=== PATIENT | female | born 1995 | race African-American/Black ===

== ENCOUNTER 2019-05-08 04:41 | Inpatient (IN) ==
[2019-05-08] MEDS ORDERED: ZOFRAN IV PRN (04:43)
[2019-05-08] MEDS ORDERED: STADOL IV PRN (04:43)
[2019-05-08] MEDS ORDERED: PEPCID PO PRN ×2 (04:43)
[2019-05-08] MEDS ORDERED: TYLENOL PO PRN (04:43)
[2019-05-08] MEDS ORDERED: REGLAN PO PRN (04:43)
[2019-05-08] MEDS ORDERED: PEPCID IV PRN (04:43)
[2019-05-08] MEDS ORDERED: PITOCIN 30 UNITS/NS 30 UNIT/500 ML IV.SOLN IV SCH ×2 (04:45→16:15)
[2019-05-08] MEDS ORDERED: SODIUM CHLORIDE 0.9% INJ SCH (04:45)
[2019-05-08] MEDS: LR 1,000 ML IV SCH ×3 (05:03→08:40)
[2019-05-08 05:40] LABS: URINE SOURCE VOIDED
[2019-05-08 05:50] LABS: BILIRUBIN URINE NEGATIVE (NEGATIVE); BLOOD URINE NEGATIVE (NEGATIVE); CLARITY CLEAR (CLEAR); COLOR YELLOW; GLUCOSE URINE NEGATIVE (NEGATIVE); KETONE URINE TRACE mg/dL (NEGATIVE); LEUKOCYTES URINE 2+ (NEGATIVE); NITRITE URINE NEGATIVE (NEGATIVE); PH URINE 6.5; PROTEIN URINE TRACE mg/dL (NEGATIVE); UROBILINOGEN URINE 1 mg/dL
[2019-05-08 05:58] LABS: BASO# 0.03 X1000 (0.0-0.2); BASO% 0.3 % (0.0-0.8); EOS# 0.19 X1000 (0.0-0.7); EOS% 2.1 % (0.0-10.0); HEMATOCRIT 33.7 % (37.0-47.0); HEMOGLOBIN 11.2 g/dL (12.0-16.0); IMM GRAN# 0.04 X1000 (0.0-0.04); IMM GRAN% 0.4 % (0.0-0.5); LYMPH# 2.71 X1000 (1.2-3.4); LYMPH% 29.7 % (20.5-51.1); MCH 30.2 PG (27-31); MCHC 33.2 g/dL (33-37); MCV 90.8 FL (81-99); MONO# 0.84 X1000 (0.11-0.59); MONO% 9.2 % (1.7-9.3); MPV 11.5 FL (7.4-10.4); NEUT% 58.3 % (42.2-75.2); PLT 179 X1000 (130-400); RBC 3.71 XMIL (4.2-5.4); RDW 13.4 % (11.5-14.5); WBC 9.11 X1000 (4.8-10.8)
[2019-05-08 05:59] LABS: UR AMPHETAMINES QUAL NONE DETECTED (NONE DETECT); UR BARBITUATES QUAL NONE DETECTED (NONE DETECT); UR BENZODIAZEPIN QUAL NONE DETECTED (NONE DETECT); UR CANNABINOIDS QUAL NONE DETECTED (NONE DETECT); UR COCAINE QUAL NONE DETECTED (NONE DETECT); UR METHADONE QUAL NONE DETECTED (NONE DETECT); UR METHAMPHETAMINE QUAL NONE DETECTED (NONE DETECT); UR OPIATES QUAL NONE DETECTED (NONE DETECT); UR OXYCODONE QUAL NONE DETECTED (NONE DETECT); UR PCP QUAL NONE DETECTED (NONE DETECT); UR PROPOXYPHENE QUAL NONE DETECTED (NONE DETECT); UR TCA QUAL NONE DETECTED (NONE DETECT)
[2019-05-08] MEDS ORDERED: FENTANYL-BUPIV-NS 2 MCG-0.1% 250 ML EPIDURAL PRN (07:37)
[2019-05-08] MEDS ORDERED: MARCAINE 0.25% PF INJ ONE (07:45)
--- NOTE | 2019-05-08 09:32 | HISTORY AND PHYSICAL ---
HISTORY OF PRESENT ILLNESS: The patient is a 23-year-old black female, G4, P3, who is at 39 and 5/7 weeks. Her care was unremarkable. She had a favorable cervix and was scheduled for induction of labor. Group B strep culture was negative. PAST MEDICAL HISTORY: Unremarkable. PAST SURGICAL HISTORY: None. PAST OB HISTORY: G4, P3, of spontaneous vaginal delivery x3. Her largest infant was 7 pounds 5 ounces. [employer]ATOR HISTORY: Menarche at age 14. FAMILY HISTORY: Significant for high blood pressure. REVIEW OF SYSTEMS: All systems reviewed and noncontributory. SOCIAL HISTORY: Tobacco use: None. Alcohol use: None. MEDICATIONS: vitamins. ALLERGIES: Penicillin. PHYSICAL EXAMINATION: VITAL SIGNS: Height is 5 feet 8 inches. Weight 271 pounds. Temperature is 97.6, blood pressure 128/67, pulse of 83, respirations 20. heart rate 125 with positive variability. HEENT: Pupils are equal, round and reactive to light and accommodation. Extraocular movements were intact. Oropharynx clear. NECK: Supple. No thyromegaly. LUNGS: Clear to auscultation. HEART: Regular rate and rhythm. ABDOMEN: Bowel sounds positive. Gravid, nontender. PELVIC: Cervix was 4 cm dilated, 50% effaced, minus 2 station. Vertex presentation was noted. EXTREMITIES: No cyanosis, clubbing or edema noted. NEUROLOGICAL: Cranial nerves II through XII grossly intact. Motor 5/5. Deep tendon reflexes 1+ bilaterally. ASSESSMENT AND PLAN: A 23-year-old black female, G4, P3, at 39 and 5/7 weeks gestation, with favorable for induction of labor. We will start with Pitocin. The patient may have an epidural. Anticipate vaginal delivery. cc: Bert Grace III, MD
[2019-05-08] MEDS ORDERED: BENADRYL IV PRN (16:05)
[2019-05-08] MEDS ORDERED: CYTOTEC PO PRN (16:05)
[2019-05-08] MEDS ORDERED: AMBIEN PO PRN (16:05)
[2019-05-08] MEDS ORDERED: BOOSTRIX VACCINE IM ONE (16:05)
[2019-05-08] MEDS ORDERED: PITOCIN IM PRN (16:05)
[2019-05-08] MEDS ORDERED: MINERAL OIL PO PRN (16:05)
[2019-05-08] MEDS ORDERED: ATARAX PO PRN (16:05)
[2019-05-08] MEDS ORDERED: HYDROXYZINE IM PRN (16:05)
[2019-05-08] MEDS ORDERED: M-M-R II VACCINE SUBQ ONE (16:05)
[2019-05-08] MEDS ORDERED: PERI MEDS (DERMOPLAST/NUPERCAINAL/TUCKS) MISC PRN (16:05)
[2019-05-08] MEDS ORDERED: XYLOCAINE-MPF 1% INJ PRN (16:05)
[2019-05-08] MEDS ORDERED: PITOCIN 20 UNITS/NS 20 UNITS/1,000 ML IV.SOLN IV SCH (16:15)
--- NOTE | 2019-05-08 19:19 | OPERATIVE NOTE ---
PROCEDURE DATE: 05/08/2019 The patient progressed to complete and pushing, had spontaneous vaginal delivery of a male, 9 pounds 0 ounces with Apgars of 9 and 10 at 1539 on 05/08/2019 over second-degree midline episiotomy. OP presentation was noted. Cord blood sample was obtained at this time. Placenta was then delivered intact with 3-vessel cord. Second-degree midline episiotomy repaired with 2-0 and 3-0 chromic. ESTIMATED BLOOD LOSS: 200 mL. ANESTHESIA: Epidural, Bert Painter MD. COUNTS: All counts were correct x2. cc: Bert Grace III, MD
[2019-05-08] MEDS: NORCO-10 PO PRN (20:22)
[2019-05-08] MEDS: MOTRIN PO PRN (20:23)
[2019-05-09] MEDS: PERICOLACE PO SCH ×2 (03:41→20:47)
[2019-05-09] MEDS: NORCO-10 PO PRN ×2 (04:10→22:04)
[2019-05-09] MEDS: MOTRIN PO PRN ×3 (04:10→22:04)
[2019-05-09 06:37] LABS: BASO# 0.02 X1000 (0.0-0.2); BASO% 0.2 % (0.0-0.8); EOS# 0.23 X1000 (0.0-0.7); EOS% 2.2 % (0.0-10.0); HEMATOCRIT 31.5 % (37.0-47.0); HEMOGLOBIN 10.3 g/dL (12.0-16.0); IMM GRAN# 0.05 X1000 (0.0-0.04); IMM GRAN% 0.5 % (0.0-0.5); LYMPH% 27.2 % (20.5-51.1); MCH 30.1 PG (27-31); MCHC 32.7 g/dL (33-37); MCV 92.1 FL (81-99); MONO# 0.91 X1000 (0.11-0.59); MONO% 8.8 % (1.7-9.3); MPV 11.4 FL (7.4-10.4); NEUT# 6.29 X1000 (1.4-6.5); NEUT% 61.1 % (42.2-75.2); PLT 168 X1000 (130-400); RBC 3.42 XMIL (4.2-5.4); RDW 13.5 % (11.5-14.5)
--- NOTE | 2019-05-09 08:05 | OB/GYN PROGRESS NOTE ---
Progress Note OB - . OB Progress Note: Vital Signs - 24 hr 05/08/19 11:30 05/08/19 16:10 05/08/19 16:20 Temperature 97.3 F L 96.9 F L Pulse Rate 76 90 89 Respiratory Rate 20 20 20 Blood Pressure 115/57 122/63 Blood Pressure [Left Arm] 121/58 121/61 O2 Sat by Pulse Oximetry 98 99 100 05/08/19 16:30 05/08/19 16:40 05/08/19 16:50 Temperature Pulse Rate 88 88 80 Respiratory Rate 20 20 20 Blood Pressure Blood Pressure [Left Arm] 124/58 128/62 121/59 O2 Sat by Pulse Oximetry 100 100 100 05/08/19 17:00 05/08/19 17:10 05/08/19 20:00 Temperature 97.5 F L Pulse Rate 78 79 94 H Respiratory Rate 20 20 18 Blood Pressure 135/58 119/66 Blood Pressure [Left Arm] 129/68 135/58 O2 Sat by Pulse Oximetry 100 100 05/09/19 03:34 Temperature 97.5 F L Pulse Rate 69 Respiratory Rate 18 Blood Pressure 121/58 Blood Pressure [Left Arm] O2 Sat by Pulse Oximetry Laboratory Results - last 24 hr 05/09/19 06:10 WBC 10.30 RBC 3.42 L Hgb 10.3 L Hct 31.5 L MCV 92.1 MCH 30.1 MCHC 32.7 L RDW Std Deviation 13.5 Plt Count 168 MPV 11.4 H Immature Gran % (Auto) 0.5 Neut % (Auto) 61.1 Lymph % (Auto) 27.2 [place] % (Auto) 8.8 Eos % (Auto) 2.2 Baso % (Auto) 0.2 Immature Gran # (Auto) 0.05 H Neut # (Auto) 6.29 Lymph # (Auto) 2.80 [place] # (Auto) 0.91 H Eos # (Auto) 0.23 Baso # (Auto) 0.02 23 yo PPD#1 s/p Patient seen and examined. She complains of sinus congestion and cough this AM. She states pain is controlled and notes minimal lochia. She is ambulating and voiding without difficulty. She is tolerating a regular diet. She is bottle feeding. She desires interval BTL for pp contraception. Physical Exam-General - PHYSICAL EXAM-ADULT Initial Vital Signs Reviewed: Yes - CONSTITUTIONAL General Appearance: appears well, alert, no apparent distress - EYES Eyes: PERRL/EOMI - HEAD, EARS, NOSE, MOUTH & THROAT HENMT: normocephalic/atraumatic - RESPIRATORY Respiratory: lungs clear, normal breath sounds, no respiratory distress - CARDIOVASCULAR Cardiovascular: regular rate, rhythm - GASTROINTESTINAL (ABDOMEN) Abdominal Exam: normal bowel sounds, non tender, soft (fundus firm, below umbilicus) - MUSCULOSKELETAL Extremity: normal range of motion, non-tender - PSYCHIATRIC Psych/Mental Status: normal mood/affect Assessment/Plan - Assessment/Plan Assessment: 23 yo PPD#1 s/p , EIOL with sinus congestion/cough 1. HD stable, afebrile 2. Routine PP care 3. Mucinex/Robutissin prn congestion/cough 4. Encourage ambulation 5. Desires interval BTL for pp contraception 6. Bottlefeeding
[2019-05-09] MEDS ORDERED: ROBITUSSIN PO PRN (08:06)
[2019-05-09] MEDS: MUCINEX PO PRN ×2 (10:28→22:04)
[2019-05-09] MEDS: ROBITUSSIN PO PRN ×2 (10:28→22:04)
[2019-05-09] MEDS: BENADRYL PO PRN ×2 (10:31→22:04)
[2019-05-09] MEDS: NORCO-5 PO PRN (14:22)
[2019-05-10] MEDS: ROBITUSSIN PO PRN (07:33)
[2019-05-10] MEDS: BENADRYL PO PRN (07:33)
--- NOTE | 2019-05-10 07:45 | OB/GYN PROGRESS NOTE ---
- Subjective Pt seen and examined. Currently w/o complaints. Ambulating and urinating w/o complications. Denies pain, fever, chills, N/V. +Bottle feeding and admits to decreased lochia. OB Physical Exam Vital Signs - 8 hr 05/10/19 01:18 Temperature 96.7 F L Pulse Rate 72 Respiratory Rate 18 Blood Pressure 131/77 O2 Sat by Pulse Oximetry 98 - CONSTITUTIONAL General Appearance: appears well, alert, no apparent distress - RESPIRATORY Respiratory: lungs clear, normal breath sounds. negative: rales, rhonchi, wheezing - CARDIOVASCULAR Cardiovascular: regular rate, rhythm - GASTROINTESTINAL (ABDOMEN) Abdominal Exam: non tender (Fundus firm below umbilicus), soft - GENITOURINARY Female Genitalia/Pelvic Exam: external exam normal, blood (decreased lochia) - MUSCULOSKELETAL Extremity: non-tender. negative: calf tenderness - PSYCHIATRIC Psych/Mental Status: oriented x 3 Active Medications Generic Name Dose Route Start Last Admin Trade Name Freq PRN Reason Stop Dose Admin Acetaminophen 650 mg 05/08/19 04:43 Tylenol PO Q4-6H PRN PRN Headache Hydrocodone Bitart/Acetaminophen 1 each 05/08/19 16:05 05/09/19 22:04 [place]-10 PO 1 each Q3-4H PRN PRN Administration Pain (7-10 on Pain Scale) Hydrocodone Bitart/Acetaminophen 1 each 05/08/19 16:05 05/09/19 14:22 [place]-5 PO 1 each Q3-4H PRN PRN Administration Pain (1-6 on Pain Scale) Benzocaine 1 each 05/08/19 16:05 [place] Meds (Dermoplast/Nupercainal/Tucks) MISC 3-4XDAY PRN PRN episiotomy/hemorrhoids Butorphanol Tartrate 2 mg 05/08/19 04:43 Stadol IV PRN PRN Pain Diphenhydramine HCl 12.5 mg 05/08/19 16:05 Benadryl IV Q4H PRN PRN Itching Diphenhydramine HCl 25 mg 05/08/19 16:05 05/10/19 07:33 Benadryl PO 25 mg Q4H PRN PRN Administration Itching Famotidine 40 mg 05/08/19 04:43 Pepcid PO Q12H PRN PRN GI upset or indigestion Famotidine 20 mg 05/08/19 04:43 Pepcid IV Q12H PRN PRN GI upset or indigestion Famotidine 20 mg 05/08/19 04:43 Pepcid PO PRN PRN Guaifenesin 600 mg 05/09/19 08:06 05/09/19 22:04 Mucinex PO 600 mg Q12H PRN PRN Administration Congestion Guaifenesin 200 mg 05/09/19 09:05 05/10/19 07:33 Robitussin PO 200 mg Q6H PRN PRN Administration Cough Hydroxyzine HCl 50 mg 05/08/19 16:05 Hydroxyzine IM Q3-4H PRN PRN Nausea Hydroxyzine HCl 50 mg 05/08/19 16:05 Atarax PO Q3-4H PRN PRN Nausea Lactated Ringer's 1,000 mls @ 0 mls/hr 05/08/19 04:45 05/08/19 08:40 Lr IV 125 mls/hr .Q0M YULI Administration As Directed Oxytocin/Sodium Chloride 30 unit in 500 mls @ 0 mls/hr 05/08/19 04:45 Pitocin 30 Units/Ns IV .Q0M YULI As Directed Oxytocin/Sodium Chloride 20 units in 1,000 mls @ 0 mls/hr 05/08/19 16:15 05/08/19 16:24 Pitocin 20 Units/Ns IV 125 mls/hr .Q0M YULI Administration As Directed Ibuprofen 800 mg 05/08/19 16:05 05/09/19 22:04 Motrin PO 800 mg Q8H PRN PRN Administration cramping Lidocaine HCl 30 ml 05/08/19 16:05 Xylocaine-Mpf 1% INJ PRN PRN Perineal repair Metoclopramide HCl 10 mg 05/08/19 04:43 Reglan PO PRN PRN c section Mineral Oil 30 ml 05/08/19 16:05 Mineral Oil PO PRN PRN Perineal massage Misoprostol 800 microgm 05/08/19 16:05 Cytotec PO PRN PRN Severe bleeding Ondansetron HCl 4 mg 05/08/19 04:43 Zofran IV PRN PRN Nausea Oxytocin 20 unit 05/08/19 16:05 Pitocin IM PRN PRN Severe bleeding Senna/Docusate Sodium 1 each 05/08/19 21:00 05/09/19 20:47 Pericolace PO 1 each QHS YULI Administration Sodium Chloride 5 - 10 ml 05/08/19 04:45 Sodium Chloride 0.9% INJ DIRECTED YULI Zolpidem Tartrate 10 mg 05/08/19 16:05 Ambien PO HS PRN PRN Sleep Laboratory Tests 05/08/19 05/08/19 05/08/19 05:00 05:00 05:20 WBC 9.11 RBC 3.71 L Hgb 11.2 L Hct 33.7 L MCV 90.8 MCH 30.2 MCHC 33.2 RDW Std Deviation 13.4 Plt Count 179 MPV 11.5 H Immature Gran % (Auto) 0.4 Neut % (Auto) 58.3 Lymph % (Auto) 29.7 [place] % (Auto) 9.2 Eos % (Auto) 2.1 Baso % (Auto) 0.3 Immature Gran # (Auto) 0.04 Neut # (Auto) 5.30 Lymph # (Auto) 2.71 [place] # (Auto) 0.84 H Eos # (Auto) 0.19 Baso # (Auto) 0.03 Urine Source VOIDED Urine Color YELLOW Urine Clarity CLEAR Urine pH 6.5 Ur Specific [place] 1.020 Urine Protein TRACE A Urine Ketones TRACE Urine Blood NEGATIVE Urine Nitrite NEGATIVE Urine Bilirubin NEGATIVE Urine Urobilinogen 1 Urine WBC 2+ A Urine Glucose NEGATIVE Urine Opiates Screen Ur Oxycodone Screen Urine Methadone Screen U Propoxyphene Qual Ur Barbituates Screen Ur Tricyclics Screen Ur Phencyclidine Scrn Ur Amphetamines Screen U Methamphetamines Scrn U Benzodiazepines Scrn Urine Cocaine Screen U Cannabinoids Screen RPR NON-REACTIVE 05/08/19 05/09/19 05:20 06:10 WBC 10.30 RBC 3.42 L Hgb 10.3 L Hct 31.5 L MCV 92.1 MCH 30.1 MCHC 32.7 L RDW Std Deviation 13.5 Plt Count 168 MPV 11.4 H Immature Gran % (Auto) 0.5 Neut % (Auto) 61.1 Lymph % (Auto) 27.2 [place] % (Auto) 8.8 Eos % (Auto) 2.2 Baso % (Auto) 0.2 Immature Gran # (Auto) 0.05 H Neut # (Auto) 6.29 Lymph # (Auto) 2.80 [place] # (Auto) 0.91 H Eos # (Auto) 0.23 Baso # (Auto) 0.02 Urine Source Urine Color Urine Clarity Urine pH Ur Specific [place] Urine Protein Urine Ketones Urine Blood Urine Nitrite Urine Bilirubin Urine Urobilinogen Urine WBC Urine Glucose Urine Opiates Screen NONE DETECTED Ur Oxycodone Screen NONE DETECTED Urine Methadone Screen NONE DETECTED U Propoxyphene Qual NONE DETECTED Ur Barbituates Screen NONE DETECTED Ur Tricyclics Screen NONE DETECTED Ur Phencyclidine Scrn NONE DETECTED Ur Amphetamines Screen NONE DETECTED U Methamphetamines Scrn NONE DETECTED U Benzodiazepines Scrn NONE DETECTED Urine Cocaine Screen NONE DETECTED U Cannabinoids Screen NONE DETECTED RPR - Assessment & Plan (1) Vaginal delivery Status: Resolved (2) care and examination immediately after delivery Status: Resolved - Progress Note Disposition: 23 yo PPD#2 s/p -con't routine PP care -Plan for d/c home today -Plan for BTL, forms signed with Dr. Grace
[2019-05-10 08:37] VITALS: BP 127/76
[2019-05-10] MEDS: MOTRIN PO PRN (09:33)
[2019-05-10] MEDS: NORCO-5 PO PRN (09:33)
== END 2019-05-10 10:05 | disposition home or self-care (01) | DRG 807 ==
LOC: P.LD 04:41
PROVIDERS: ADMIT Obstetrics & Gynecology; ATTEND Obstetrics & Gynecology